=== PATIENT | female | born 1960 | race Two or more races ===

== ENCOUNTER 2017-02-13 14:55 | Emergency (ER) | payer OTHER ==
--- NOTE | ~2017-02-13 | CR72 ---
[facility] A Service of [facility] & [facility] RADIOLOGY TEXT RESULTS PATIENT: CRISTINA HOFFMANN LOCATION: [facility] : 64 UNIT #: [id number] AGE: [address]: Dwight Velez MD SEX: F ORDER DR: [id number] [facility] [address] [place], [place] [address] [id number] P MR#: [id number] Acc #: [id number] NAME: CRISTINA HOFFMANN : 1960 SEX: F STUDY DATE/TIME: 02/13/2017 13:41 UNIT: [facility] ROOM: STUDY DESCRIPTION: CR Chest Single View Portable Attending Physician: Dwight Velez M.D. Ordering Physician: Dwight Velez M.D. Primary Care Physician: [place] Kenny M.D. MEDICAL IMAGING REPORT This report is preliminary unless electronic signature is present EXAM Portable chest INDICATIONS Chest pain and shortness of breath for 1 month. COMPARISON There are no comparisons. FINDINGS The lungs are well expanded. There is no acute infiltrate. Heart size normal. Cholecystectomy clips. Visualized osseous structures are unremarkable. IMPRESSION No active disease. Dictated by... García Su M.D. THIS IS AN ELECTRONICALLY VERIFIED REPORT García Su M.D. at 02/13/2017 4:57 PM ARS/to TD: 02/13/2017 14:42 JOB #: [id number] MEDICAL IMAGING REPORT Page 1 of 1 COPY
--- NOTE | ~2017-02-13 | EKG ---
PATIENT: CRISTINA HOFFMANN UNIT #: [id number] Ventricular Rate: 99 BPM Atrial Rate: 99 BPM P-R Interval: 136 ms QRS Duration: 84 ms Q-T Interval: 362 ms QTC Calculation(Bezet): 464 ms P [place]: 53 degrees Calculated R [place]: 48 degrees Calculated T [place]: 47 degrees Diagnosis Line: Normal sinus rhythm Diagnosis Line: Nonspecific ST abnormality Diagnosis Line: Abnormal ECG Diagnosis Line: When compared with ECG of 05-SEP-2013 12:06, Diagnosis Line: No significant change was found Diagnosis Line: Confirmed by CAIN ESTRADA MD ([id number]) on 02/14/2017 Diagnosis Line: 5:43:55 AM INTERPRETING MD: NATALIE MATHUR
[2017-02-13 14:45] LABS: POC - CKMB <1.0 ng/mL (0.0-7.9); POC - TROPONIN <0.05 ng/mL (<=0.05)
[~2017-02-13 14:55] MED LIST: BACTRIM DS TABL1 TA1 PO; BENTYL10 M1 PO; CIPRO PO; HYDROCODONE/APA1 T16 PO; MYLANTA GAS80 M1 PO; OMEPRAZOLE20 M2 PO; ONDANSETRON ODT4 MG PO; PYRIDIUM100 MG PO; SENNA CONCENTR8.6 MG PO; ZOFRAN PO
[2017-02-13 15:07] LABS: BASOPHIL% 0.3 % (0-2.5); EOSINOPHIL% 0.3 % (0.0-7.0); HEMATOCRIT 38.4 % (35.0-45.0); HEMOGLOBIN 12.8 gm/dL (12.0-16.0); LYMPHOCYTE# 2.3 X10e3 (1.0-3.5); LYMPHOCYTE% 33.4 % (17.0-45.0); MEAN CELL VOLUME 90.9 FL (83-96); MEAN CORPUSCULAR HEMOGLOBIN 30.4 PG (28-34); MEAN CORPUSCULAR HGB CONC 33.4 g/dL (30-36); MEAN PLATELET VOLUME 13.9 FL (6.5-11.5); MONOCYTE# 0.8 X10e3 (0-1.0); NEUTROPHIL# 3.8 X10e3 (1.5-7.1); RED BLOOD COUNT 4.23 X10e (3.90-5.30); RED CELL DISTRIBUTION WIDTH 13.4 % (11.0-15.5); WHITE BLOOD COUNT 6.9 X10e3 (4.0-10.5)
[2017-02-13 15:09] LABS: ALBUMIN SERUM 3.9 g/dL (3.5-5.0); BILIRUBIN, DIRECT 0.1 mg/dL (0.0-0.2); BILIRUBIN,INDIRECT 1.5 mg/dL (0.0-0.9); BILIRUBIN,TOTAL 1.6 mg/dL (0.2-2.0); CALCIUM SERUM 9.1 mg/dL (8.4-10.2); CREATININE SERUM 0.6 mg/dL (0.6-1.4); DIFF IND NO; GLOM FILT RATE Estimated 103.3 mL/min (>60); PLATELET COUNT 109 X10e3 (140-420); PROTEIN TOTAL SERUM 6.7 g/dL (6.0-8.3)
[2017-02-13 15:12] LABS: POTASSIUM 2.9 mmol/L (3.5-5.1)
== END 2017-02-13 16:46 | disposition home or self-care (01) ==
LOC: CED 14:55
PROVIDERS: Emergency Medicine
DX: R07.89 Other chest pain (principal); R10.13 Epigastric pain; K21.9 Gastro-esophageal reflux disease without esophagitis; Z90.49 Acquired absence of other specified parts of digestive tract; Z79.899 Other long term (current) drug therapy
CPT/HCPCS: 36415; 71010; 80048; 80076; 82553; 83880; 84484; 84703; 85025; 85379; 93005; 96374; 99284

== ENCOUNTER 2017-04-30 08:27 | Emergency (ER) | payer OTHER ==
--- NOTE | ~2017-04-30 | CR63 ---
[facility] A Service of [facility] RADIOLOGY TEXT RESULTS PATIENT: CRISTINA HOFFMANN LOCATION: [facility] : 64 UNIT #: [id number] AGE: [address]: Valeriy Rueda MD SEX: F ORDER DR: [id number] [facility] [address] [place], [place] [address] [id number] E MR#: [id number] Acc #: [id number] NAME: CRISTINA HOFFMANN : 1960 SEX: F STUDY DATE/TIME: 04/30/2017 13:50 UNIT: [facility] ROOM: STUDY DESCRIPTION: CR Chest 2 View Attending Physician: Valeriy Rueda M.D. Ordering Physician: Valeriy Rueda M.D. Primary Care Physician: [facility] MEDICAL IMAGING REPORT This report is preliminary unless electronic signature is present EXAM Chest PA and lateral, 04/30/2017 HISTORY Cough and fever for 1 week. FINDINGS PA and lateral examination of the chest upright shows a good expansion of the parenchyma with a normal distribution of the pulmonary vascularity. There is no indication of congestion, effusion, infiltrate, tumor, or nodular density. The pleural reflections and diaphragmatic contours are normal. The cardiac silhouette and mediastinal anatomy is within normal limits. IMPRESSION Normal chest. Dictated by... Kevin Clarke M.D. THIS IS AN ELECTRONICALLY VERIFIED REPORT Kevin Clarke M.D. at 05/01/2017 2:09 PM EMMA/lake TD: 05/01/2017 00:58 JOB #: [id number] MEDICAL IMAGING REPORT Page 1 of 1 COPY
--- NOTE | ~2017-04-30 | CT4 ---
[facility] Service of [facility] RADIOLOGY TEXT RESULTS PATIENT: CRISTINA HOFFMANN LOCATION: [facility] : 64 UNIT #: [id number] AGE: [address]: Valeriy Rueda MD SEX: F ORDER DR: [id number] [facility] [address] [place], [place] [address] [id number] E MR#: [id number] Acc #: [id number] NAME: CRISTINA HOFFMANN : 1960 SEX: F STUDY DATE/TIME: 04/30/2017 13:42 UNIT: [facility] ROOM: STUDY DESCRIPTION: CT Abd and Pelv Wo Cont Attending Physician: Valeriy Rueda M.D. Ordering Physician: Valeriy Rueda M.D. Primary Care Physician: [facility] IMAGING REPORT This report is preliminary unless electronic signature is present EXAM CT scan of the abdomen and pelvis without contrast, 04/30/2017 HISTORY Fever, dry cough, right-side abdominal pain and back pain for 6 days. Evaluate for obstructing renal calculus. TECHNIQUE Spiral CT was performed through the abdomen and pelvis without oral or intravenous contrast administration using renal stone protocol. This CT exam was performed with one or more of the following radiation dose reduction techniques: automatic exposure control, adjustment of mA and/or kV according to patient size, and iterative reconstruction. FINDINGS ABDOMEN: There is no obstructing renal or ureteral calculus. The kidneys are normal bilaterally. The visualized liver, spleen, pancreas and adrenal glands are normal. Gallbladder is surgically absent. PELVIS FINDINGS: The gut, mesenteric and otilia structures are normal. There is no free fluid in the abdomen or pelvis. Images of the lung bases demonstrate dense airspace consolidation in the posterior right lower lobe characteristic of pneumonia. Atelectatic changes are seen at the left lung base. Small right pleural effusion. IMPRESSION 1. Dense airspace consolidation in the posterior right lower lobe characteristic of pneumonia. 2. Small right pleural effusion. 3. No obstructing renal or ureteral calculus. 4. Surgical absence of the gallbladder. [facility] Service of [facility] RADIOLOGY TEXT RESULTS PATIENT: CRISTINA HOFFMANN LOCATION: [facility] : 64 UNIT #: [id number] AGE: [address]: Valeriy Ruead MD SEX: F ORDER DR: Dictated by... Kevin Clarke M.D. THIS IS AN ELECTRONICALLY VERIFIED REPORT Kevin Clarke M.D. at 05/01/2017 2:09 PM EMMA/lake TD: 05/01/2017 02:15 JOB #: [id number] MEDICAL IMAGING REPORT Page 1 of 1 COPY
[2017-04-30 10:31] LABS: URINE SOURCE CLEAN CATCH
[2017-04-30 11:05] LABS: URINE APPEARANCE CLEAR; URINE BILIRUBIN NEG (NEG); URINE BLOOD 3+ (NEG); URINE COLOR YELLOW; URINE GLUCOSE NEG (NEG); URINE KETONE TRACE (NEG); URINE LEUKOCYTE ESTERASE 1+ (NEG); URINE NITRATE NEG (NEG); URINE PROTEIN TRACE (NEG)
[2017-04-30 11:08] LABS: CULTURE INDICATED? YES; URBCS1 AUWI 25-50 /[HPF] (0-2); URINE BACTERIA AUWI 2+ (NEGATIVE); URINE SQUAMOUS EPITHELIAL CELL FEW /[HPF]
[2017-04-30 11:30] LABS: URINE AMORPHOUS SEDIMENT AMORP URATES; URINE YEAST PRESENT
[2017-04-30 12:40] LABS: BASOPHIL% 0.2 % (0-2.5); EOSINOPHIL% 0.1 % (0.0-7.0); HEMATOCRIT 37.8 % (35.0-45.0); HEMOGLOBIN 12.5 gm/dL (12.0-16.0); LYMPHOCYTE# 1.5 X10e3 (1.0-3.5); LYMPHOCYTE% 20.2 % (17.0-45.0); MEAN CELL VOLUME 92.1 FL (83-96); MEAN CORPUSCULAR HEMOGLOBIN 30.4 PG (28-34); MEAN PLATELET VOLUME 11.9 FL (6.5-11.5); MONOCYTE# 0.7 X10e3 (0-1.0); MONOCYTE% 9.2 % (3.0-12.0); NEUTROPHIL# 5.1 X10e3 (1.5-7.1); NEUTROPHIL% 70.3 % (40-75); PLATELET COUNT 104 X10e3 (140-420); RED BLOOD COUNT 4.11 X10e (3.90-5.30); RED CELL DISTRIBUTION WIDTH 13.3 % (11.0-15.5); WHITE BLOOD COUNT 7.3 X10e3 (4.0-10.5)
[2017-04-30 12:42] LABS: DIFF IND NO
[2017-04-30 13:12] LABS: ALBUMIN SERUM 4.1 g/dL (3.5-5.0); BILIRUBIN,TOTAL 1.6 mg/dL (0.2-2.0); CALCIUM SERUM 8.7 mg/dL (8.4-10.2); CREATININE SERUM 0.5 mg/dL (0.6-1.4); GLOM FILT RATE Estimated 109.7 mL/min (>60); POTASSIUM 3.1 mmol/L (3.5-5.1); PROTEIN TOTAL SERUM 7.1 g/dL (6.0-8.3)
== END 2017-04-30 15:35 | disposition home or self-care (01) ==
LOC: CED 08:27
PROVIDERS: Emergency Medicine
DX: J18.9 Pneumonia, unspecified organism (principal); Z90.49 Acquired absence of other specified parts of digestive tract
CPT/HCPCS: 36415; 71020; 74176; 80053; 81003; 85025; 87086; 87088; 87186; 87651; 99284

== ENCOUNTER 2017-06-10 09:43 | Observation (INO) | payer OTHER ==
[~2017-06-10] VITALS: Ht 157.5 cm; Wt 49.0 kg
--- NOTE | ~2017-06-10 | CR72 ---
[facility] A Service of [facility] & [facility] RADIOLOGY TEXT RESULTS PATIENT: CRISTINA HOFFMANN LOCATION: [facility] 334-01 : [birth year] UNIT #: [id number] AGE: [address]: JOSE PARR MD SEX: F ORDER DR: [id number] [facility] [address] [place], [place] [address] [id number] I MR#: [id number] Acc #: [id number] NAME: CRISTINA HOFFMANN : 1960 SEX: F STUDY DATE/TIME: 06/10/2017 11:34 UNIT: [address] ROOM: [facility] STUDY DESCRIPTION: CR Chest Single View Portable Attending Physician: Jose Parr M.D. Ordering Physician: Alverto Valdovinos D.O. MEDICAL IMAGING REPORT This report is preliminary unless electronic signature is present EXAM Chest x-ray portable HISTORY Short of air. Weak. Dizzy. Symptoms for 8 days. No injury. TECHNIQUE Single frontal portable view of the chest timed 11:34 06/10/2017 compared to 04/30/2017. FINDINGS The cardiac silhouette size is normal. There is no acute-appearing parenchymal infiltrate or acute congestive failure. There is no pneumothorax. No pleural effusion. IMPRESSION No active disease. Dictated by... Latanya Doe M.D. THIS IS AN ELECTRONICALLY VERIFIED REPORT Latanya Doe M.D. at 06/11/2017 3:54 PM SAC/pcl TD: 06/11/2017 15:18 JOB #: [id number] MEDICAL IMAGING REPORT Page 1 of 1 COPY
--- NOTE | ~2017-06-10 | HP ---
Unit #: [id number] #: [id number] Patient: CRISTINA HOFFMANN [id number] [address] [address] [id number] I MR#: [id number] NAME: CRISTINA HOFFMANN ROOM: [address] Age: 56 Sex: F Admission Date: 06/10/2017 : 1960 Attending Physician: Jose Parr M.D. Primary Care Physician: [facility] HISTORY AND PHYSICAL CHIEF COMPLAINT Dizziness. HISTORY OF PRESENT ILLNESS The patient is a 56-year-old [place]ian female brought to the emergency room complaining of dizziness. The patient stated the patient has been having worsening dizziness since eight days. The patient was also found to have shaking at the time of sitting up. The patient is a poor historian. The history is obtained by speaking to the patient's son at the bedside. The patient also noted the shakiness of the hands and the legs not at rest, only with the movements since yesterday that made her come to the emergency room. The patient denies any fever, chills. The patient denies any nausea and vomiting. The patient denies any headache. The patient denies any trauma. PAST MEDICAL HISTORY History of GERD. PAST SURGICAL HISTORY History of hysterectomy and gallbladder surgery. SOCIAL HISTORY No history of smoking cigarettes, drinking alcohol, any illicit drug abuse. FAMILY HISTORY Reviewed and none. ALLERGIES No known drug allergies. HOME MEDICATION 1. Omeprazole. 2. Fiber laxative. 3. Cetirizine. 4. Ventolin. REVIEW OF SYMPTOMS Positive for dizziness. Positive for vertigo. Positive for tremors with the movements and other systems have been reviewed and all other systems are negative. PHYSICAL EXAMINATION GENERAL APPEARANCE: The patient is laying on a bed, no in acute distress. Unit #: [id number] #: [id number] Patient: CRISTINA HOFFMANN VITAL SIGNS: Temperature 98.2. Pulse 79. Respiratory rate 16. Blood pressure 129/78, sating 100% room air. HEENT: Head: Atraumatic, normocephalic. ENT: Pupils equal, round, reacting to light and accommodation. Extraocular movements are intact. NECK: Supple. LUNGS: Decreased air entry at the bases. HEART: Regular rate and rhythm. ABDOMEN: Soft. Positive bowel sounds. EXTREMITIES: No cyanosis. No clubbing. NEUROLOGIC: The patient has dizziness of the spinning movements of the head when sitting up and shakiness at the head and the patient has resting tremors. DIAGNOSTIC STUDIES LABORATORY: UA shows 2+ bacteria, 1+ blood. Troponin less than 0.05. WBC 6, hemoglobin 13.6, hematocrit 41.3, platelets 147. Sodium 140, potassium 3.7, chloride 107, bicarb 25, glucose 95, BUN 13, creatinine 0.6, AST 29, ALT 28, alkaline phosphatase 115. Total bilirubin 1.4. Troponin less than 0.05. IMAGING: Chest x-ray is negative. CT of the head showed only microvascular changes. CARDIOVASCULAR: EKG shows normal sinus rhythm. ASSESSMENT 1. Dizziness. 2. Weakness. 3. Tremors. PLAN To admit the patient to observation with telemetry. We will check the MRI of the brain without contrast and we will have the neuro consult for the dizziness, probably from the benign positional vertigo. We will continue with Antivert and check the urine toxicology and Ativan for the worsening tremors and OT/PT and further recommendations will follow. Dictated by Dimas Torres TD: 06/10/2017 17:01 JOB #: [id number] HISTORY AND PHYSICAL Page 1 of 1 X JOSE PARR MD HISTORY AND PHYSICAL
--- NOTE | ~2017-06-10 | CT17 ---
[facility] A Service [facility] RADIOLOGY TEXT RESULTS PATIENT: CRISTINA HOFFMANN LOCATION: [facility] 334-01 : [birth year] UNIT #: [id number] AGE: [address]: Lauren Ron MD SEX: F ORDER DR: [id number] [facility] [address] [place], [place] [address] [id number] I MR#: [id number] Acc #: [id number] NAME: CRISTINA HOFFMANN : 1960 SEX: F STUDY DATE/TIME: 06/11/2017 15:56 UNIT: A PCU ROOM: [facility] STUDY DESCRIPTION: CT Angio Head Attending Physician: Earline Parr M.D. Ordering Physician: Eduarda Mclain M.D. Primary Care Physician: [facility] MEDICAL IMAGING REPORT This report is preliminary unless electronic signature is present EXAM CTA head and neck INDICATION Dizziness for 8 days. Acute ischemic stroke. TECHNIQUE CT angiography of the head and neck utilizing 100 mL Isovue-370 IV contrast. Coronal and sagittal 3-D MIP reconstructions were obtained. Volume rendered and surface-rendered reconstructions were obtained. Curved planar reconstructions were reviewed. This CT exam was performed with one or more of the following radiation dose reduction techniques: automatic exposure control, adjustment of mA and/or kV according to patient size, and iterative reconstruction. COMPARISON MRI of the brain 06/10/[address] head 06/10/2017. FINDINGS CTA NECK: Evaluation for a significant stenosis is based upon NASCET criteria. The aortic arch is normal. There is a three-vessel aortic arch. Both carotid arteries are widely patent with no evidence of significant atherosclerotic disease. The vertebral arteries are patent. CTA HEAD: The intracranial internal carotid arteries are widely patent. Both the middle cerebral arteries and the anterior cerebral arteries are widely patent. The anterior communicating artery is normal. The right posterior communicating artery is widely patent. The left posterior communicating artery is not clearly identified. Vertebrobasilar basilar systems are unremarkable. Both posterior cerebral arteries are widely [facility] A Service [facility] RADIOLOGY TEXT RESULTS PATIENT: CRISTINA HOFFMANN LOCATION: [facility] 334-01 : 64 UNIT #: [id number] AGE: [address]: Lauren Ron MD SEX: F ORDER DR: patent. No dural venous thrombus. IMPRESSION Negative CT angiogram of the head and neck. No evidence of significant vascular stenosis, thrombosis, or aneurysm. Dictated by... Jaylan Murguia M.D. THIS IS AN ELECTRONICALLY VERIFIED REPORT Jaylan Murguia M.D. at 06/13/2017 10:30 AM Mary TD: 06/12/2017 08:40 JOB #: [id number] MEDICAL IMAGING REPORT Page 1 of 1 COPY
--- NOTE | ~2017-06-10 | EKG ---
PATIENT: CRISTINA HOFFMANN UNIT #: [id number] Ventricular Rate: 60 BPM Atrial Rate: 60 BPM P-R Interval: 164 ms QRS Duration: 86 ms Q-T Interval: 414 ms QTC Calculation(Bezet): 414 ms P [place]: 73 degrees Calculated R [place]: 35 degrees Calculated T [place]: 55 degrees Diagnosis Line: Diagnosis Line: Normal sinus rhythm Diagnosis Line: Normal ECG Diagnosis Line: No previous ECGs available Diagnosis Line: Confirmed by CAIN ESTRADA MD ([id number]) on 06/12/2017 Diagnosis Line: 6:21:28 PM INTERPRETING MD: NATALIE MATHUR
--- NOTE | ~2017-06-10 | EKG ---
PATIENT: CRISTINA HOFFMANN UNIT #: [id number] Ventricular Rate: 83 BPM Atrial Rate: 83 BPM P-R Interval: 158 ms QRS Duration: 84 ms Q-T Interval: 380 ms QTC Calculation(Bezet): 446 ms P [place]: 71 degrees Calculated R [place]: 38 degrees Calculated T [place]: 58 degrees Diagnosis Line: Normal sinus rhythm Diagnosis Line: Normal ECG Diagnosis Line: When compared with ECG of 11-JUN-2017 02:08, Diagnosis Line: (unconfirmed) Diagnosis Line: No significant change was found Diagnosis Line: Confirmed by CAIN ESTRADA MD ([id number]) on 06/12/2017 Diagnosis Line: 6:30:41 PM INTERPRETING MD: NATALIE MATHUR
--- NOTE | ~2017-06-10 | CR72 ---
[facility] A Service of [facility] RADIOLOGY TEXT RESULTS PATIENT: CRISTINA HOFFMANN LOCATION: [facility] 334-01 : [birth year] UNIT #: [id number] AGE: [address]: Lauren Ron MD SEX: F ORDER DR: [id number] [facility] [address]. [place], [place] [address] [id number] I MR#: [id number] #: [id number] NAME: CRISTINA HOFFMANN : 1960 SEX: F STUDY DATE/TIME: 06/11/2017 20:48 [facility]: [facility] STUDY DESCRIPTION: CR Chest Single View Portable Attending Physician: Earline Parr M.D. Ordering Physician: Bhaskar Davis M.D. Primary Care Physician: [facility] MEDICAL IMAGING REPORT This report is preliminary unless electronic signature is present EXAM Single view chest INDICATION Shortness of air for 1 day. FINDINGS Single portable AP view of the chest compared to 06/10/2017. The heart and mediastinal contours are normal. The lungs are clear. No pleural effusion. IMPRESSION No acute cardiopulmonary findings. Dictated by... Jaylan Murguia M.D. THIS IS AN ELECTRONICALLY VERIFIED REPORT Jaylan Murguia M.D. at 06/13/2017 10:34 AM RPLeón/florentino TD: 06/12/2017 08:14 JOB #: [id number] MEDICAL IMAGING REPORT Page 1 of 1 COPY
--- NOTE | ~2017-06-10 | CO ---
Unit #: [id number] #: [id number] Patient: CRISTINA MCDANIELS [id number] [facility]. [address] [place], [place] [address] [id number] I MR#: [id number] NAME: CRISTINA MCDANIELS ROOM: 334 Age: 56 Sex: F Admission Date: 06/10/2017 : 1960 Attending Physician: Earline Parr M.D. [facility] Consult[facility] Date: 06/12/2017 CONSULTATION REPORT REASON FOR CONSULTATION Chest pain. HISTORY OF PRESENT ILLNESS This is a 56-year-old female from [facility] who came to the emergency room with dizziness. The patient had a neurological workup on this admission. They feel most of her symptoms are probable vertigo. She has been started on meclizine. She had an MRI that was negative. She was possibly going to be discharged, and later in the day she had onset of chest pain that was preceded by some shortness of breath, anxiety, palpitations. The MET team was called to evaluate the patient. Cardiac enzymes have been negative. EKG does not show anything acute. D-dimer was obtained, and it was 208. Cardiology has been consulted to assist with evaluation and management. According to the patient, she had a recent stress test and saw a public works commissioner for similar symptoms. She says she has been having onset of some chest pain, but she said it is usually preceded by some anxiety, and then she feels her heart pounding, then she will get the chest pain. She denies that the pain radiates up into her neck, bilateral jaws, shoulders, arms or elbows. She has not had any syncopal episodes. She denies any increased lower extremity edema. All information is obtained from the patient via the electrical repairer phone. PAST MEDICAL HISTORY 1. Gastroesophageal reflux disease. 2. Seasonal allergies. 3. Anxiety. 4. Chews tobacco. 5. History of thrombocytopenia and normocytic anemia; since this admission normal. 6. Stress test done 01/23/2017, which revealed no evidence of infarction or ischemia. EF of 68%. 7. Two-D echo done 01/23/2017 showed LVEF of 72%. No evidence of pericardial effusion. No significant valvular abnormalities. 8. Twenty-four hour Holter analyzed on 01/26/2017 showed sinus rhythm, average rates between 55 and 79 beats per minute, no PVCs, 7 PACs. Lowest heart rate was 55 beats per minute. One episode of sinus tachycardia. No pauses. PAST SURGICAL HISTORY 1. Cholecystectomy. 2. Hysterectomy. HOME MEDICATIONS Unit #: [id number] #: [id number] Patient: CRISTINA MCDANIELS 1. Ventolin 2 puffs inhalation q.4 hours p.r.n. 2. Omeprazole 20 mg p.o. daily. 3. Zyrtec 10 mg p.o. daily. 4. Fiber laxative 1 tablet p.o. daily. ALLERGIES No known drug allergies. SOCIAL HISTORY The patient lives with her family. She says she chews tobacco; has been chewing for some time. No alcohol or illicit drug abuse. FAMILY HISTORY Not aware of any coronary artery disease in the immediate family members. REVIEW OF SYSTEMS See details in the HPI. PHYSICAL EXAMINATION GENERAL: On exam, Ms. Mcdaniels is a 56-year-old female, in no acute respiratory distress. She is awake, alert. Answers most questions appropriately via the electrical repairer phone. NECK: Trachea midline. No thyromegaly or lymphadenopathy. Normal carotid upstrokes. No jugular venous distention. HEART: S1, S2, regular rate and rhythm. No clicks, murmurs or rubs. LUNGS: Bilaterally clear throughout. No wheezes, rales or rhonchi. ABDOMEN: Soft, nontender. EXTREMITIES: Pedal pulses are palpable. No pedal edema. DIAGNOSTIC STUDIES LABORATORY DIAGNOSTIC DATA: Glucose is 103, BUN 15, creatinine 0.6, eGFR 103.3, sodium 135, potassium 3.3 (has been supplemented), chloride 105, CO2 24, calcium 8.6, total protein 7.3, albumin 4.3, bili total 1.4, AST 29, ALT 28, alkaline phosphatase 115. WBC 5.8, hemoglobin 12.5, hematocrit 37.9, platelets 147. Initial cardiac enzymes - CK-MB 1.2, troponin less than 0.05; CK-MB 1.4, troponin less than 0.05; CK total 71, MB 0.9, percentage of MB 1.3, troponin less than 0.03. TSH is 1.51. INR is 1. D-dimer 208. Urine tox screen is negative. Urinalysis - Urobilinogen 0.2, blood 1+, bacteria 2+. Urine culture, so far, negative. IMAGING: CT of the head without contrast shows nothing acute. Chest x-ray shows no active disease. MRI of the brain without contrast was nothing acute. CT angio of the head and neck shows no evidence of significant vascular stenosis, thrombosis or aneurysm. Chest x-ray yesterday showed nothing acute. CARDIOVASCULAR: EKG shows normal sinus rhythm with ventricular rate 70 beats per minute. IMPRESSION 1. Dizziness, likely vertigo secondary to benign positional vertigo. 2. Chest pain - Atypical. 3. Hypokalemia. Unit #: [id number] #: [id number] Patient: CRISTINA MCDANIELS 4. GERD. 5. Seasonal allergies. 6. Anxiety. 7. Chews tobacco. PLAN 1. Cardiology consulted to assist with evaluation and management. 2. Cardiac enzymes are negative. EKG does not show anything acute. 3. Have obtained records from [facility] from the end of December, which were negative. EF was 68%. On the two-D echo EF was 72%. No significant valvular disorder. She also had a Holter monitor. There was nothing significant there. At this point, since her pain is somewhat atypical, will ambulate the patient, and if no further chest pain, may be discharged home and follow up with Dr. Lozano with [facility]. She explained to me via the electrical repairer phone that she does have a followup appointment with him. She says this is similar to pain she had when she had the stress testing. 4. On exam, there are no signs or symptoms of acute congestive heart failure. 5. The patient was started on meclizine for her vertigo, and the patient's that her dizziness has improved. 6. Encouraged the patient to (1) chewing tobacco. 7. Orthostatic vitals were done since admission. They have been unremarkable. Thank you very much for allowing us to participate in her care. Dictated by... Christine Baker M.D. CEC/mandi TD: 06/12/2017 12:07 JOB #: [id number] CONSULTATION REPORT Page 1 of 1 X Alexandria Schwartz APRN CONSULTATION REPORT
--- NOTE | ~2017-06-10 | EKG ---
PATIENT: CRISTINA HOFFMANN UNIT #: [id number] Ventricular Rate: 70 BPM Atrial Rate: 70 BPM P-R Interval: 158 ms QRS Duration: 86 ms Q-T Interval: 412 ms QTC Calculation(Bezet): 444 ms P [place]: 74 degrees Calculated R [place]: 50 degrees Calculated T [place]: 53 degrees Diagnosis Line: Normal sinus rhythm Diagnosis Line: Normal ECG Diagnosis Line: When compared with ECG of 13-FEB-2017 13:03, Diagnosis Line: No significant change was found Diagnosis Line: Confirmed by CAIN ESTRADA MD ([id number]) on 06/11/2017 Diagnosis Line: 3:04:32 PM INTERPRETING MD: NATALIE MATHUR
--- NOTE | ~2017-06-10 | MR18 ---
[facility] A Service of [facility] RADIOLOGY TEXT RESULTS PATIENT: CRISTINA HOFFMANN LOCATION: [facility] : [birth year] UNIT #: [id number] AGE: [address]: JOSE PARR MD SEX: F ORDER DR: [id number] [id number] [facility] [place]. [place], [place] [address] [id number] I MR#: [id number] Acc #: [id number] NAME: CRISTINA HOFFMANN : 1960 SEX: F STUDY DATE/TIME: 06/10/2017 16:45 UNIT: A PCU ROOM: [facility] STUDY DESCRIPTION: MR Brain Wo Contrast Attending Physician: Jose Parr M.D. Ordering Physician: Jose Parr M.D. [facility] Phys[facility] REPORT This report is preliminary unless electronic signature is present. EXAM MR brain INDICATION Dizziness for 8 days. Hypertension. Head spinning. TECHNIQUE Multiplanar MRI of the brain without contrast. COMPARISON CT head 06/10/2017. FINDINGS Midline structures and craniocervical junction are within normal limits. Michel-white matter differentiation is normal. There is no acute intracranial ischemia or acute intracranial hemorrhage. Michel-white matter differentiation is normal. There is scattered T2/FLAIR signal abnormalities with the periventricular and subcortical white matter. This is most compatible with chronic small vessel changes. The ventricles and basilar cisterns are normal in size and configuration. No extra-axial collections. Vascular flow voids are within normal limits. Soft tissues of the orbit are unremarkable. Visualized paranasal sinuses and mastoid air cells are clear. IMPRESSION 1. No acute intracranial findings. 2. Scattered T2/FLAIR signal abnormalities within the periventricular and subcortical white matter. These are most consistent with chronic small vessel changes. Given the patient's age, a demyelinating process could also be considered, however, this is felt to be less likely. If clinically appropriate, follow up MRI may be obtained. [facility] A Service of [facility] RADIOLOGY TEXT RESULTS PATIENT: CRISTINA HOFFMANN LOCATION: [facility] : [birth year] UNIT #: [id number] AGE: [address]: JOSE PARR MD SEX: F ORDER DR: Dictated by... Jaylan Murguia M.D. THIS IS AN ELECTRONICALLY VERIFIED REPORT Jaylan Murguia M.D. at 06/11/2017 7:49 PM RPC/travis TD: 06/11/2017 17:52 JOB #: [id number] MRI CENTER REPORT Page 1 of 1 COPY
--- NOTE | ~2017-06-10 | CT71 ---
[facility] A Service [facility] RADIOLOGY TEXT RESULTS PATIENT: CRISTINA HOFFMANN LOCATION: [facility] 334-01 : [birth year] UNIT #: [id number] AGE: [address]: JOSE PARR MD SEX: F ORDER DR: [id number] [facility] [address] [place], [place] [address] [id number] I MR#: [id number] Acc #: [id number] NAME: CRISTINA HOFFMANN : 1960 SEX: F STUDY DATE/TIME: 06/10/2017 11:31 UNIT: A U ROOM: [facility] STUDY DESCRIPTION: CT Head Wo Contrast Attending Physician: Jose Parr M.D. Ordering Physician: Alverto Valdovinos D.O. Primary Care Physician: Count Includes [facility], MEDICAL IMAGING REPORT This report is preliminary unless electronic signature is present EXAM Head CT without HISTORY Dizziness for 8 days. Head spinning elevated blood pressure sent from [facility]. TECHNIQUE AND COMPARISON Routine noncontrast head CT is reviewed. This CT exam was performed with one or more of the following radiation dose reduction techniques: Automatic exposure control, adjustment of mA and/or kV according to patient size, and iterative reconstruction. There is no previous. FINDINGS There is no displaced calvarial fracture. The visualized mastoid air cells are clear. The visualized paranasal sinuses are clear. There is no evidence for acute intracranial hemorrhage or extra-axial fluid collection. Minor white matter low-attenuation is noted nonspecific probably due to small vessel disease. There is no acute cortical infarct. There is no intracranial mass effect. The basilar cisterns are patent. IMPRESSION 1. No acute intracranial abnormality. Probable sequelae of small vessel disease. Dictated by... Latanya Doe M.D. THIS IS AN ELECTRONICALLY VERIFIED REPORT Latanya oDe M.D. at 06/11/2017 3:53 PM SAC/travis [facility] A Service [facility] RADIOLOGY TEXT RESULTS PATIENT: CRISTINA HOFFMANN LOCATION: [facility] 334-01 : [birth year] UNIT #: [id number] AGE: [address]: JOSE PARR MD SEX: F ORDER DR: TD: 06/11/2017 15:17 JOB #: [id number] MEDICAL IMAGING REPORT Page 1 of 1 COPY
--- NOTE | ~2017-06-10 | CO ---
Unit #: [id number] #: [id number] Patient: CRISTINA HOFFMANN [id number] [facility] [address] [place], [place] [address] [id number] Melissa MR#: [id number] NAME: CRISTINA HOFFMANN ROOM: 334 Age: 56 Sex: F Admission Date: 06/10/2017 : 1960 Attending Physician: Earline Parr M.D. Primary Care Physician: [facility] Consultation Date: 06/11/2017 CONSULTATION REPORT PRIMARY CARE PHYSICIAN I believe, [place] [facility]. REASON FOR CONSULTATION Dizziness. PATIENT IDENTIFICATION This is a 56-year-old right-handed female, from I believe [facility]. She was evaluated in room 334 at [facility]. SOURCE OF INFORMATION Essentially the family. History and physical not available yet. PROBLEM LIST 1. GERD. 2. Allergies. 3. Asthma. 4. Status post hysterectomy and gallbladder surgery. HISTORY OF PRESENT ILLNESS This is a 56-year-old female, who was actually admitted yesterday. She presented with dizziness. The dizziness is feeling of vertigo. There was no double vision, speech, swallowing, or breathing problems. There was no weakness. Otherwise, nothing focal. No loss of consciousness. She has mild headaches, but nothing otherwise. No seizures. No migraines. She is stable. She got head CT and an MRI. MRI showed some chronic small vessel changes, but nothing else. Her blood pressure has been running a bit low. None of other labs are impressive. There is question about 2 to 5 wbc's in the urine, 2+ bacteria, but nothing else otherwise. No falls or injuries. No change in medication. Actually as a matter of fact, she is not really taking a lot of medication. PAST MEDICAL HISTORY As discussed above. PAST SURGICAL HISTORY As discussed above. ALLERGIES None known to us. Unit #: [id number] #: [id number] Patient: CRISTINA HOFFMANN HOME MEDICATIONS Ventolin, omeprazole, Zyrtec. FAMILY HISTORY No primary neurologic issue. SOCIAL HISTORY She is . Lives with the family. She denies tobacco, alcohol, or drug use. REVIEW OF SYSTEMS CONSTITUTIONAL: The patient denies any weight issues, fever, chills, rigor, or sweats. HEENT: Very mild headaches. Very nonspecific dizziness. CARDIOVASCULAR: No chest pain, clubbing, cyanosis, orthopnea, or palpitation. PULMONARY: No active processes, but it looks like she may have some respiratory issues chronically. GASTROINTESTINAL: No nausea, vomiting, diarrhea, or constipation. GENITOURINARY: No genitourinary symptom. EXTREMITIES: No extremity problems. BACK: No back problem. PSYCHIATRIC: No psychotic issue. NEUROLOGIC: Dizziness. No other hematologic, dermatologic, or endocrine problem. PHYSICAL EXAMINATION VITAL SIGNS: Temperature 97.6, pulse 70, respirations 16, blood pressure is 101/64. Pain was 2/10. O2 saturations 98% to 100%. Weight of 108 pounds. BMI was 19. NEUROLOGIC: The patient is awake. She is alert. She is oriented to herself and place. She is not oriented to time and the family states she never was. She can name. She can follow commands. No right or left confusion. No finger agnosia. Cranial nerve examination demonstrates full bar[place] of vision to confrontation. Eye movements are conjugate. I did not see any ptosis. I did not see any nystagmus. Extraocular movements are intact. Sensation on the face and scalp are normal. Strength of muscles of facial expression normal. Hearing seemed to be intact bilaterally. Tongue was midline. Uvula was midline. Palate elevation was normal. Head turning and shoulder shrugs were unremarkable. Motor examination demonstrated normal bulk, tone. Strength was essentially 5-/5 all over. Sensory examination intact for soft touch and pain sensation. No extinction was seen. Romberg was not evaluated. Gait examination was deferred. Coordination was normal for rxjjuq-tr-hkwg-to-finger. Reflexes 1/4. Toes are downgoing. Unit #: [id number] #: [id number] Patient: CRISTINA HOFFMANN DIAGNOSTIC STUDIES LABORATORY RESULTS: Reviewed. IMAGING STUDIES: Reviewed. IMPRESSION Dizziness, which is very nonspecific. I will check her labs including CT. I will have PT/OT see her. I am checking her blood pressure also. This may be dizziness, which is nonspecific from hypotension or other causes. She does not look like vertebrobasilar insufficiency. It may be vestibulopathy. I will have PT/OT evaluation and do Carine maneuver and we will go from there. Call me for any other questions, issues, or concerns. This is not a transient ischemic attack or stroke. She has chronic small vessel changes. She has gastroesophageal reflux disease, so I will consider adding Plavix. Dictated by... Dimas Christie/jeremi TD: 06/12/2017 05:21 JOB #: [id number] CONSULTATION REPORT Page 1 of 1 X Eduarda Mclain MD X CONSULTATION REPORT
--- NOTE | ~2017-06-10 | EKG ---
PATIENT: CRISTINA HOFFMANN UNIT #: [id number] Ventricular Rate: 60 BPM Atrial Rate: 60 BPM P-R Interval: 158 ms QRS Duration: 86 ms Q-T Interval: 418 ms QTC Calculation(Bezet): 418 ms P [place]: 73 degrees Calculated R [place]: 40 degrees Calculated T [place]: 56 degrees Diagnosis Line: Normal sinus rhythm Diagnosis Line: Normal ECG Diagnosis Line: No previous ECGs available Diagnosis Line: Confirmed by CAIN ESTRADA MD ([id number]) on 06/11/2017 Diagnosis Line: 3:10:19 PM INTERPRETING MD: NATALIE MATHUR
--- NOTE | ~2017-06-10 | CT23 ---
[facility] A Service of [facility] RADIOLOGY TEXT RESULTS PATIENT: CRISTINA HOFFMANN LOCATION: [facility] 334-01 : [birth year] UNIT #: [id number] AGE: [address]: Lauren Ron MD SEX: F ORDER DR: [id number] [id number] [place], [place] [address] [id number] I MR#: [id number] Acc #: [id number] NAME: CRISTINA HOFFMANN : 1960 SEX: F STUDY DATE/TIME: 06/11/2017 15:56 UNIT: [address] ROOM: [facility] STUDY DESCRIPTION: CT Angio Neck Attending Physician: Earline Parr M.D. Ordering Physician: Eduarda Mclain M.D. Primary Care Physician: [facility] MEDICAL IMAGING REPORT This report is preliminary unless electronic signature is present EXAM CT angiogram of the neck HISTORY FINDINGS Please see CT angiogram of the head for results. Dictated by... Jaylan Murguia M.D. THIS IS AN ELECTRONICALLY VERIFIED REPORT Jaylan Murguia M.D. at 06/13/2017 10:35 AM Mary TD: 06/12/2017 08:42 JOB #: [id number] MEDICAL IMAGING REPORT Page 1 of 1 COPY
--- NOTE | ~2017-06-10 | DS ---
Unit #: [id number] #: [id number] Patient: CRISTINA MCDANIELS [id number] [address] [address] [id number] I MR#: [id number] NAME: CRISTINA MCDANIELS ROOM: 334 Age: 56 Sex: F Admission Date: 06/10/2017 : 1960 Discharge Date: 06/11/2017 Attending Physician: Earline Parr M.D. Primary Care Physician: [facility]. DISCHARGE SUMMARY PRINCIPAL DIAGNOSES 1. Vertigo secondary to benign paroxysmal positional vertigo. 2. Hypokalemia. 3. Gastroesophageal reflux disease. 4. Seasonal allergies. 5. Atypical chest pain. CONSULTANTS Dr. Mclain, neurology. PROCEDURES IMAGING: CT scan of the head without contrast in the emergency department without any acute findings. MRI of the brain with and without contrast with chronic small vessel ischemic change. No acute findings. Chest x-ray on 06/10/2017 without any acute findings. CLINICAL HISTORY/HOSPITAL COURSE Ms. Mcdaniels is a nice 56-year-old [facility] female who presented to the emergency department with complaints of dizziness. The patient is having vertigo with turning of the head to the left or to the right and with ambulating. This has been associated with some nausea, but no emesis. CT scan in the emergency department was unremarkable and the patient was placed in observation for evaluation. Dr. Mclain was consulted. The patient underwent MRI of the brain which was negative for any acute stroke. CTA of the head and neck is still currently pending. However, with history and exam symptoms could be more coming from the inner ear. Vitamin B12 level is also currently pending. Assuming CTA of the head and neck is negative and B12 is unremarkable, in addition to some pending orthostatics, I think the patient can be discharged home on meclizine on a p.r.n. basis. DISCHARGE CONDITION Stable. DISPOSITION Discharge to home. DISCHARGE MEDICATIONS 1. Proventil inhaler 2 puffs q.4 h. p.r.n. shortness of breath. 2. Meclizine 25 mg p.o. q.8 h. p.r.n. dizziness. Unit #: [id number] #: [id number] Patient: CRISTINA MCDANIELS 3. Zyrtec 10 mg daily. 4. Omeprazole 20 mg daily. 5. [employer] Fiber Laxative 1 daily. 6. Aspirin 81 mg daily. DIET The patient is instructed to follow a regular diet. ACTIVITY She can increase her activity as tolerated. FOLLOWUP The patient will follow up at [facility] in two weeks. Time spent on discharge today 37 minutes. Dictated by... Lois Sosa M.D. REGINALD/zachary TD: 06/12/2017 10:40 JOB #: [id number] DISCHARGE SUMMARY Page 1 of 1 X Lois Sosa MD X DISCHARGE SUMMARY
[2017-06-10 10:35] LABS: URINE SOURCE CLEAN CATCH
[2017-06-10 10:39] LABS: URINE APPEARANCE CLEAR; URINE BILIRUBIN NEG (NEG); URINE BLOOD 1+ (NEG); URINE COLOR YELLOW; URINE GLUCOSE NEG (NEG); URINE KETONE NEG (NEG); URINE LEUKOCYTE ESTERASE NEG (NEG); URINE NITRATE NEG (NEG); URINE PROTEIN NEG (NEG); URINE SPECIFIC GRAVITY 1.008 (1.003-1.035); URINE UROBILINOGEN 0.2 MG/DL (NEG)
[2017-06-10 10:42] LABS: CULTURE INDICATED? YES; URBCS1 AUWI 0-2 /[HPF] (0-2); URINE BACTERIA AUWI 2+ (NEGATIVE); URINE SQUAMOUS EPITHELIAL CELL FEW /[HPF]
[2017-06-10 11:30] LABS: BASOPHIL% 0.6 % (0-2.5); EOSINOPHIL% 0.4 % (0.0-7.0); HEMATOCRIT 41.3 % (35.0-45.0); HEMOGLOBIN 13.6 gm/dL (12.0-16.0); LYMPHOCYTE# 1.8 X10e3 (1.0-3.5); LYMPHOCYTE% 29.3 % (17.0-45.0); MEAN CELL VOLUME 91.2 FL (83-96); MEAN CORPUSCULAR HEMOGLOBIN 30.1 PG (28-34); MEAN PLATELET VOLUME 11.8 FL (6.5-11.5); MONOCYTE# 0.5 X10e3 (0-1.0); MONOCYTE% 7.6 % (3.0-12.0); NEUTROPHIL# 3.7 X10e3 (1.5-7.1); NEUTROPHIL% 62.1 % (40-75); PLATELET COUNT 147 X10e3 (140-420); RED BLOOD COUNT 4.53 X10e (3.90-5.30); RED CELL DISTRIBUTION WIDTH 13.3 % (11.0-15.5)
[2017-06-10 11:33] LABS: POC - CKMB 1.2 ng/mL (0.0-7.9); POC - TROPONIN <0.05 ng/mL (<=0.05)
[2017-06-10 11:41] LABS: DIFF IND NO
[2017-06-10 11:59] LABS: ALBUMIN SERUM 4.3 g/dL (3.5-5.0); BILIRUBIN, DIRECT 0.1 mg/dL (0.0-0.2); BILIRUBIN,INDIRECT 1.3 mg/dL (0.0-0.9); BILIRUBIN,TOTAL 1.4 mg/dL (0.2-2.0); BUN/CREATININE RATIO 21.66; CALCIUM SERUM 9.2 mg/dL (8.4-10.2); CREATININE SERUM 0.6 mg/dL (0.6-1.4); GLOM FILT RATE Estimated 103.3 mL/min (>60); POTASSIUM 3.7 mmol/L (3.5-5.1); PROTEIN TOTAL SERUM 7.3 g/dL (6.0-8.3)
[2017-06-10 12:25] LABS: POC - CKMB 1.4 ng/mL (0.0-7.9); POC - TROPONIN <0.05 ng/mL (<=0.05)
[2017-06-10] MEDS ORDERED: ALBUTEROL17 GM INH (15:29)
[2017-06-10] MEDS ORDERED: OMEPRAZOLE20 M1 PO (15:30)
[2017-06-10] MEDS ORDERED: ZYRTEC10 M1 PO (15:31)
[2017-06-10] MEDS ORDERED: [UNRECOGNIZED DRUG - OTHER] PO (15:32)
[2017-06-10 18:38] LABS: AMPHETAMINE NEG (NEG); BARBITURATES NEG (NEG); BENZODIAZEPINES NEG (NEG); COCAINE NEG (NEG); MARIJUANA NEG (NEG); OPIATES NEG (NEG); TRICYCLIC ANTIDEPRESSANTS NEG (NEG); U METHADONE NEG (NEG)
[2017-06-11 03:51] LABS: %MB 1.4 % (0.0-4.0); MB 1.2 ng/ml
[2017-06-11 05:17] LABS: HEMATOCRIT 37.9 % (35.0-45.0); HEMOGLOBIN 12.5 gm/dL (12.0-16.0); MEAN CELL VOLUME 91.7 FL (83-96); MEAN CORPUSCULAR HEMOGLOBIN 30.3 PG (28-34); RED BLOOD COUNT 4.13 X10e (3.90-5.30); RED CELL DISTRIBUTION WIDTH 13.3 % (11.0-15.5); WHITE BLOOD COUNT 5.8 X10e3 (4.0-10.5)
[2017-06-11 06:00] LABS: CALCIUM SERUM 8.6 mg/dL (8.4-10.2); CREATININE SERUM 0.6 mg/dL (0.6-1.4); GLOM FILT RATE Estimated 103.3 mL/min (>60); POTASSIUM 3.3 mmol/L (3.5-5.1)
[2017-06-11 08:19] LABS: %MB 1.4 % (0.0-4.0); MB 1.1 ng/ml
[2017-06-11 14:11] LABS: FOLATE (FOLIC ACID) 13.8 ng/mL (>5.8)
[2017-06-11 20:45] LABS: ARTERIAL BLD GAS O2 SATURATION 96.4 % (90.0-100.0); ARTERIAL BLOOD GAS CARBOXY HB 0.6 %sat (0.0-9.0); ARTERIAL BLOOD GAS HCO3 23.7 mmol/L; ARTERIAL BLOOD GAS MET HB 0.6 %sat (0.0-2.0); ARTERIAL BLOOD GAS PCO2 31.6 mmHg (35.0-45.0); ARTERIAL BLOOD GAS PO2 82.8 mmHg (80.0-100); ARTERIAL BLOOD GAS pH 7.484 (7.350-7.450)
[2017-06-11 20:46] LABS: ARTERIAL BLOOD GAS ART SITE RIGHT BRACHIAL; ARTERIAL BLOOD GAS DELIVERY NASAL CANNULA; ARTERIAL DRAW? YES
[2017-06-11 21:41] LABS: %MB 1.3 % (0.0-4.0); MB 0.9 ng/ml
[2017-06-12] MEDS ORDERED: MOTION RELIEF25 MG PO (15:08)
[2017-06-12] MEDS ORDERED: CLOPIDOGREL75 MG PO (15:09)
[2017-06-12] MEDS ORDERED: ATIVAN0.5 M1 PO (15:09)
== END 2017-06-12 16:23 | disposition home or self-care (01) ==
LOC: CED 09:43 → CEDOF 13:20 → C3A PCU 13:20 → CED 15:41 → CEDOF 15:41 → C3A PCU 17:43
PROVIDERS: Emergency Medicine; Internal Medicine; Psychiatry & Neurology Neurology
DX: H81.10 Benign paroxysmal vertigo, unspecified ear (principal); E87.6 Hypokalemia; K21.9 Gastro-esophageal reflux disease without esophagitis; J30.2 Other seasonal allergic rhinitis; R07.89 Other chest pain; R53.1 Weakness; R25.1 Tremor, unspecified; F17.220 Nicotine dependence, chewing tobacco, uncomplicated; F41.9 Anxiety disorder, unspecified; Z79.82 Long term (current) use of aspirin; Z79.899 Other long term (current) drug therapy; Z90.710 Acquired absence of both cervix and uterus; Z90.49 Acquired absence of other specified parts of digestive tract
CPT/HCPCS: 36415; 36600; 70450; 70496; 70498; 70551; 71010; 80048; 80076; 80307; 81003; 82550; 82553; 82607; 82746; 82803; 83036; 84443; 84484; 85025; 85027; 85379; 87086; 93005; 94760; 96360; 96361; 96372; 96374; 96375; 97162; 97166; 97535; 99285; C9113; G0378; G8978-GP; G8979-GP; G8984-GO; G8985-GO; J1650; J2060; J2270; Q9967